=== PATIENT | female | born 1970 | race Caucasian/White ===

== ENCOUNTER 2020-05-25 14:39 | Outpatient (CLI) | payer OTHER | END 2020-05-25 14:40 | disposition home or self-care (01) | LOC: CSHMAMMO 14:39 | PROVIDERS: ATTEND Nurse Practitioner Family | DX: Z12.31 Encounter for screening mammogram for malignant neoplasm of breast (principal) | CPT/HCPCS: 77063; 77067 ==

== ENCOUNTER 2021-07-18 07:50 | Outpatient (CLI) | payer BC | END 2021-07-18 07:51 | disposition home or self-care (01) | LOC: CSHULT 07:50 | PROVIDERS: ATTEND Physician Assistant Medical | DX: R79.89 Other specified abnormal findings of blood chemistry (principal); G47.19 Other hypersomnia; G47.00 Insomnia, unspecified | CPT/HCPCS: 76705 ==

== ENCOUNTER 2021-07-18 14:46 | Outpatient (CLI) | payer BC | END 2021-07-18 14:47 | disposition home or self-care (01) | LOC: CSHMAMMO 14:46 | PROVIDERS: ATTEND Nurse Practitioner Family | DX: Z12.31 Encounter for screening mammogram for malignant neoplasm of breast (principal); Z13.820 Encounter for screening for osteoporosis; M85.851 Other specified disorders of bone density and structure, right thigh; M85.852 Other specified disorders of bone density and structure, left thigh | CPT/HCPCS: 77063; 77067; 77080 ==

== ENCOUNTER → 2021-07-27 | Day surgery (SDC) | payer BC ==
[~2021-07-27] MED LIST: Lidocaine 1% PF 5 ML VIAL ONE; Sodium Bicarbonate 2.5 MEQ/5 ML VIAL ONE
[2021-07-27 11:07] VITALS: BP 138/84; TEMP 98
== END ==
LOC: CSHULT 10:38
PROVIDERS: ATTEND Physician Assistant Medical
DX: R76.8 Other specified abnormal immunological findings in serum (principal); K75.9 Inflammatory liver disease, unspecified; R74.8 Abnormal levels of other serum enzymes; M54.2 Cervicalgia; M25.59 Pain in other specified joint; M47.812 Spondylosis without myelopathy or radiculopathy, cervical region; F90.9 Attention-deficit hyperactivity disorder, unspecified type; E07.9 Disorder of thyroid, unspecified
CPT/HCPCS: 47000; 72050; 72120; 72202; 76942; 88307; 88313

== ENCOUNTER 2021-08-03 15:24 | Outpatient (CLI) | payer BC | END 2021-08-03 15:25 | disposition home or self-care (01) | LOC: CSHULT 15:24 | PROVIDERS: ATTEND Nurse Practitioner Family | DX: R94.6 Abnormal results of thyroid function studies (principal) | CPT/HCPCS: 76536 ==

== ENCOUNTER 2022-10-19 10:09 | Outpatient (CLI) | payer BC | END 2022-10-19 10:10 | disposition home or self-care (01) | LOC: CSHMAMMO 10:09 | PROVIDERS: ATTEND Nurse Practitioner Family | DX: Z12.31 Encounter for screening mammogram for malignant neoplasm of breast (principal) | CPT/HCPCS: 77063; 77067 ==

== ENCOUNTER 2023-05-10 10:23 | Outpatient (CLI) | payer OTHER | END 2023-05-10 10:24 | disposition home or self-care (01) | LOC: CSHMRI 10:23 | PROVIDERS: ATTEND Physician Assistant | DX: S69.92XD Unspecified injury of left wrist, hand and finger(s), subsequent encounter (principal) ==